=== PATIENT | female | born 1970 | race Two or more races ===

== ENCOUNTER 2017-02-26 11:45 | Emergency (ER) | payer MEDICAID ==
[~2017-02-26] VITALS: Ht 167.6 cm; Wt 84.4 kg
[2017-02-26 11:51] VITALS: BP 136/72
[2017-02-26] MEDS ORDERED: Sodium Chloride 500ML 500 ML IV ONE (12:04)
[2017-02-26] MEDS ORDERED: LORazepam Inj 2mg/ml 1ml IV ONE (12:15)
[2017-02-26] MEDS ORDERED: levETIRAcetam 500mg/NS100ml 100 ML IVPB ONE (12:15)
[2017-02-26] MEDS ORDERED: [UNRECOGNIZED DRUG - REMARK] (12:20)
[2017-02-26] MEDS ORDERED: KEPPRA500 M4 ORAL (12:20)
[2017-02-26] MEDS ORDERED: [UNRECOGNIZED DRUG - REMARK] (12:20)
--- NOTE | 2017-02-26 12:36 | Emergency Room Report ---
History of Present Illness General Chief Complaint: Vomiting Source: Patient, EMS Present Illness HPI Patient present with what is described to be a possible seizure activity patient reports feeling that she was going to have a seizure She also reports shaking Patient is a poor historian Has difficulty with speech this does limit the history of present illness significantly There was no reports of vomiting at the scene patient also is able to describe that she was seen recently at [facility] Had another anticonvulsant medication that was added and is usually on Keppra Allergies: Coded Allergies: No Known Allergies (Unverified , 02/26/17) Patient History Past Medical History: see triage record Pertinent Family History: none Last Menstrual Period: "A long time ago" Now: No Reviewed Nursing Documentation: PMH: Agreed, PSxH: Agreed Nursing Documentation-PMH Hx Diabetes: Yes Hx Seizures: Yes Review of Systems All Other Systems: limited - Other than the ones mentioned in the history of present illness all others are reviewed however they do stay limited due to the patient's mental status Physical Exam Vital Signs Date Time Temp Pulse Resp B/P (MAP) Pulse Ox O2 Delivery O2 Flow Rate FiO2 02/26/17 11:40 97.0 87 18 136/72 98 Room Air Sp02 EP Interpretation: reviewed, normal General Appearance: no apparent distress Head: other - Patient has obvious previous craniotomy surgery frontal lobe region Eyes: bilateral eye PERRL, bilateral eye fluoroscene uptake ENT: normal pharynx, no angioedema Neck: full range of motion, supple Respiratory: lungs clear, normal breath sounds Cardiovascular #1: regular rate, rhythm, no edema Gastrointestinal: normal bowel sounds, non tender, soft Genitourinary: no CVA tenderness Musculoskeletal: normal inspection Neurologic: alert, responsive Skin: normal color, no rash Lymphatic: no adenopathy Medical Decision Making Diagnostic Impression: Primary Impression: Status epilepticus Additional Impression: Hyperglycemia ER Course Patient is a fairly complex patient with multiple differential to consideration including but not limited to cardiac cardiopulmonary, intracranial, infectious and vascular emergencies Patient's CT head does not reveal any obvious acute pathology there is question of possible underlying mass Patient's glucose was elevated which was addressed in the ER Patient continues to be awake and alert and at this time requests admission secondary to insurance purposes patient will be transferred for continued care Labs Test 02/26/17 12:45 White Blood Count 7.0 K/UL (4.8-10.8) Red Blood Count 5.54 M/UL (4.20-5.40) Hemoglobin 15.2 G/DL (12.0-16.0) Hematocrit 47.0 % (37.0-47.0) Mean Corpuscular Volume 85 FL (80-99) Mean Corpuscular Hemoglobin 27.5 PG (27.0-31.0) Mean Corpuscular Hemoglobin Concent 32.4 G/DL (32.0-36.0) Red Cell Distribution Width 12.1 % (11.6-14.8) Platelet Count 196 K/UL (150-450) Mean Platelet Volume 6.8 FL (6.5-10.1) Neutrophils (%) (Auto) 78.2 % (45.0-75.0) Lymphocytes (%) (Auto) 15.2 % (20.0-45.0) Monocytes (%) (Auto) 4.6 % (1.0-10.0) Eosinophils (%) (Auto) 1.1 % (0.0-3.0) Basophils (%) (Auto) 1.0 % (0.0-2.0) Sodium Level 138 MMOL/L (136-145) Potassium Level 4.2 MMOL/L (3.5-5.1) Chloride Level 101 MMOL/L (98-107) Carbon Dioxide Level 29 MMOL/L (21-32) Anion Gap 8 mmol/L (5-15) Blood Urea Nitrogen 10 mg/dL (7-18) Creatinine 0.8 MG/DL (0.55-1.30) Estimat Glomerular Filtration Rate > 60 mL/min (>60) Glucose Level 347 MG/DL (74-106) Calcium Level 9.2 MG/DL (8.5-10.1) Total Bilirubin 0.6 MG/DL (0.2-1.0) Aspartate Amino Transf (AST/SGOT) 48 U/L (15-37) Alanine Aminotransferase (ALT/SGPT) 100 U/L (12-78) Alkaline Phosphatase 141 U/L (46-116) Total Creatine Kinase 26 U/L (26-308) Creatine Kinase MB 0.9 NG/ML (0.0-3.6) Creatine Kinase MB Relative Index 3.4 Troponin I 0.000 ng/mL (0.000-0.056) Total Protein 8.8 G/DL (6.4-8.2) Albumin 3.8 G/DL (3.4-5.0) Globulin 5.0 g/dL Albumin/Globulin Ratio 0.8 (1.0-2.7) Lipase 78 U/L (73-393) Rhythm Strip Diag. Results EP Interpretation: yes Rate: 66 Rhythm: NSR, no PVC's, no ectopy Chest X-Ray Diagnostic Results Chest X-Ray Diagnostic Results : Chest X-Ray Ordered: Yes # of Views/Limited/Complete: 1 View Indication: Chest Pain EP Interpretation: Yes Interpretation: no consolidation, no effusion, no pneumothorax, no acute cardiopulmonary disease Impression: No acute disease Electronically Signed by: Jairo Garvey, DO CT/MRI/US Diagnostic Results CT/MRI/US Diagnostic Results : Impression CT headComparison: No prior head examination available Right frontal parietal craniotomy surgical changes. There is encephalomalacic changes in the bilateral frontal lobes right greater than left. In the right frontal lobe adjacent to the area of encephalomalacia there is an approximate 2.5 x 2 x 3 cm area of low density. It is unclear if this is related to chronic gliotic changes related to prior surgery or prior insult or represent possible underlying lesion. Comparison to prior examinations would be most helpful if available. No acute intracranial hemorrhage or midline shift. Curvilinear area of dystrophic calcification/laminar necrosis at the right frontal lobe gyrus is noted. No hydrocephalus. Ex vacuo dilatation bilateral frontal horns are noted related to encephalomalacia change. There is less paranasal sinuses and mastoid air cells are clear. No skull fractures. Last Vital Signs Date Time Temp Pulse Resp B/P (MAP) Pulse Ox O2 Delivery O2 Flow Rate FiO2 02/26/17 11:51 97.0 102 20 136/72 95 Room Air Status: improved Disposition: XFER [facility] Condition: Improved JAIRO GARVEY D.O. Feb 26, 2017 12:36
[2017-02-26 12:51] VITALS: BP 122/82
[2017-02-26 13:08] LABS: EOSINOPHILS % (AUTO) 1.1 % (0.0-3.0); LYMPHOCYTES % (AUTO) 15.2 % (20.0-45.0); MEAN CORPUSCULAR HEMOGLOBIN 27.5 PG (27.0-31.0); MEAN CORPUSCULAR HGB CONC 32.4 G/DL (32.0-36.0); MEAN CORPUSCULAR VOLUME 85 FL (80-99); MEAN PLATELET VOLUME 6.8 FL (6.5-10.1); MONOCYTES % (AUTO) 4.6 % (1.0-10.0); NEUTROPHILS % (AUTO) 78.2 % (45.0-75.0); PLATELET COUNT 196 K/UL (150-450); RED BLOOD COUNT 5.54 M/UL (4.20-5.40); RED CELL DISTRIBUTION WIDTH 12.1 % (11.6-14.8)
[2017-02-26 13:10] LABS: ANION GAP 8 mmol/L (5-15); CALCIUM 9.2 MG/DL (8.5-10.1); CARBON DIOXIDE 29 MMOL/L (21-32); CHLORIDE 101 MMOL/L (98-107); CREATININE 0.8 MG/DL (0.55-1.30); GLOMERULAR FILTRATION RATE > 60 mL/min (>60); POTASSIUM 4.2 MMOL/L (3.5-5.1); SODIUM 138 MMOL/L (136-145)
[2017-02-26 13:22] LABS: ALANINE AMINOTRANSFERASE 100 U/L (12-78); ALBUMIN/GLOBULIN RATIO 0.8 (1.0-2.7); ASPARTATE AMINO TRANSFERASE 48 U/L (15-37); CKMB 0.9 NG/ML (0.0-3.6); LIPASE 78 U/L (73-393); TOTAL PROTEIN 8.8 G/DL (6.4-8.2)
[2017-02-26 14:40] VITALS: BP 120/73
[2017-02-26 15:46] VITALS: BP 122/69
[2017-02-26 15:48] VITALS: BP 122/69
--- NOTE | 2017-02-27 08:41 | Diagnostic Imaging Report ---
Indications: Seizure Technique: Spiral acquisitions obtained through the brain. Angled axial and coronal 5 x 5 mm slices were reconstructed. Total dose length product 1254 mGycm. CTDI vol(s) 70 mGy. Dose reduction achieved using automated exposure control Comparison: None Findings: There is evidence of prior right frontal craniotomy. There is underlying large area of cystic encephalomalacia. There is an adjacent low-attenuation within the right posterior parietal parenchyma. Irregular linear density in the superior portion of this is noted. There is also less extensive left parasagittal frontal encephalomalacia and adjacent parenchymal low attenuation. There is ex vacuo dilatation of the frontal horn the left lateral ventricle. Encephalomalacia on the right communicates with the ventricular system. No other acute hemorrhage or edema. No mass effect or midline shift. Otherwise normal mcnulty-white differentiation. The visualized orbits and sinuses are unremarkable. Impression: Evidence of right frontal craniotomy and underlying right frontal cystic encephalomalacia Adjacent area of parenchymal low attenuation. This may reflect gliosis related to prior insult, or could represent underlying acute edema. Compare with prior exams if possible Dystrophic calcifications in the superior portion of the parenchymal abnormality Left frontal encephalomalacia as well No definite acute intracranial bleed or mass effect This agrees with the preliminary interpretation provided overnight by [facility]erad[facility] service. The CT scanner at [facility] is accredited by the [employer] and the scans are performed using protocols designed to limit radiation exposure to as low as reasonably achievable to attain images of sufficient resolution adequate for diagnostic evaluation.
--- NOTE | 2017-02-27 09:55 | Diagnostic Imaging Report ---
Indication: Chest pain Technique: One view of the chest Comparison: none Findings: Lungs and pleural spaces are clear. Heart size is normal. Impression: No acute process
--- NOTE | 2017-02-27 19:23 | Cardiology Report ---
APPROVED REPORT EKG Measurement Heart [id number] Normal sinus rhythm Cannot rule out Anterior infarct, age undetermined Abnormal ECG
== END 2017-02-26 15:48 | disposition short-term general hospital (02) ==
LOC: EDBD 11:45 → EMR 12:44
DX: G40.909 Epilepsy, unspecified, not intractable, without status epilepticus (principal); E11.65 Type 2 diabetes mellitus with hyperglycemia; G93.89 Other specified disorders of brain
CPT/HCPCS: 36415; 70450; 71010; 80053; 82550; 82553; 82962; 83690; 84484; 85025; 93005; 96361; 96365; 96375; 96376; 99284; J1815; J1953; J7040